=== PATIENT | female | born 1980 | race Caucasian/White ===

== ENCOUNTER → 2018-09-25 15:00 | Oncology outpatient (ONC) | payer BC, SELFPAY ==
[2018-09-04 15:53] VITALS: BP 110/67; PULSE 86; RESP 16; TEMP 37.2; O2SAT 100
--- NOTE | 2018-09-04 16:41 | P.CONONC_ITS ---
History of Present Illness - Data of Consult Consult date: 09/04/18 Primary Care Provider: Xavi Moya MD - Consult Narrative Narrative: Jany Moreno is a 37 year old female who is referred for further evaluation of iron deficiency anemia. The patient reports that she has been anemic for as long as she can remember at least 7 or 8 years. She has been tolerating it fairly well. She does have some dyspnea with exertion but denies any chest pain or pressure. No dizziness or lightheadedness. She feels like her strength and energy level have been normal. She has not had any epistaxis or gingival bleeding. She denies any blood in the urine or stool. She does have menstrual. Lasting about 7 days. She does not believe that they are usually all that unusually heavy. She did take control pills for some time to try and decrease severity were. But had trouble with worsening migraines and stopped. She has never required a blood transfusion. She has taken iron replacement in the past. She had a rash with ferrous sulfate and with ferrous gluconate. She did find that she tolerated vitamins. She has also been taking an iron preparation from a [employer] store that is derived from [employer]. Each tablet contains 28 mg of iron. She has been taking 1 a day. She has not had any rash. She denies any abdominal pain or constipation. In June, her most recent CBC showed a white count of 4.7 hemoglobin 8.5 hematocrit 30.5 with platelets of 699026. Her MCV was 66. Ferritin was 2 iron was 10 with a TIBC of 450 and a sat of 2%. Past medical history is notable for migraine headaches. She has a history of anemia as described above. She has had a prior tonsillectomy. She has had 2 sections. She has a history of ADHD. She has had prior breast augmentation. Her only prescription medication is methylphenidate. She reports allergies to multiple iron preparations and sulfa and fluconazole Family history is positive for sister with anemia. Social history: She is . She works as a school nurse. She does not smoke. She has rare alcohol use. CC: Camden Quesada MD Home Medications and Allergies Home Medications Medication Instructions Recorded Confirmed Type methylphenidate HCl [Concerta] 54 mg PO AMINS #90 tab 10/04/17 09/04/18 Rx Allergies Allergy/AdvReac Type Severity Reaction Status Date / Time ferumoxides [FERUMOXIDES] Allergy Mild HIVES Verified 04/17/18 08:31 iron [IRON] Allergy Mild HIVES Verified 04/17/18 08:31 Sulfa (Sulfonamide Allergy Mild HIVES Verified 04/17/18 08:31 Antibiotics) [SULFA (SULFONAMIDE ANTIBIOTICS)] ferrous sulfate Allergy Unknown HIVES Verified 04/17/18 08:31 [FERROUS SULFATE] fluconazole Allergy Hives Verified 09/04/18 15:32 IRON POLYMALTOSE Allergy Mild HIVES Uncoded 11/29/17 12:56 MINERAL IRON Allergy Mild HIVES Uncoded 11/29/17 12:56 Medical History - Medical, Surgical, Family History Surgical History: Surgical History Status post delivery - Social History Smoking Status: Never smoker Review of Systems - Patient Self-Reported Symptoms SR ears, nose, mouth, throat issues: Congestion SR Cardiovascular issues: Palpitations SR Neuro issues: Headache Constitutional: fair state of general health, able to conduct usual activities, no weight loss Ears, nose, mouth, throat: no lightheadedness Cardiovascular: dyspnea on exertion, no chest pain, no palpitations Hematologic/Lymphatic: anemia Exam - Constitutional positive no acute distress, positive average body habitus - Routine HEENT Exam Head: Present: normocephalic, atraumatic Eye: Present: EOMI, PERRL. Absent: conjunctival icterus, scleral injection ENT: Present: mucous membranes moist, oropharynx clear, dentition normal - Routine Neck Exam Present: supple. Absent: lymphadenopathy, thyromegaly - Routine Respiratory Exam Present: Clear to auscultation bilaterally. Absent: rales, wheezes - Routine Cardiovascular Exam Present: RRR, S1, S2. Absent: murmur - Routine Abdominal Exam Present: soft, normoactive bowel sounds. Absent: tenderness, organomegaly, mass - Routine Extremities Exam Absent: cyanosis, clubbing, edema - Routine Back/Spine Exam Back/Spine: Absent: paraspinal tenderness, vertebral tenderness Comments: There is no clubbing or spooning of the nails. - Routine Skin Exam Present: intact. Absent: petechiae, rash - Routine Neurological Exam Present: alert, oriented X3 - Routine Psychiatric Exam Present: normal affect Results - Imaging Additional studies: Procedures LOW CERVICAL (04/21/10) Assessment and Plan (1) Iron (Fe) deficiency anemia Current visit: Yes Status: Acute A 37-year-old woman with a longstanding history of iron deficiency anemia. She has previously not tolerated iron supplementation but seems to be doing okay on her current preparation. She does have ongoing iron losses with the menstrual blood loss. She is addressing this with Gynecology. In the meantime, I think she would benefit from a higher doses of oral iron. I recommended that she increase the dose of her current supplement to 1 tablet 3 times a day if tolerated. I explained that it would be best absorbed on an empty stomach along with some vitamin-C. If she is absorbing iron adequately, I would expect improvement in reticulocyte count, quality of life and hemoglobin within few weeks. Assuming no further blood losses, hemoglobin should improve by about a half a g per week. She will return to clinic in about 3-4 weeks for follow-up. We will repeat her iron studies, reticulocyte count and CBC at that time. If she is absorbing iron well, she will continue with her oral replacement. If she is not absorbing, we may need to consider IV replacement. I did explain that the biggest risk for this would be allergic reactions. Having had reactions to oral iron would increase her risk for this somewhat although it is difficult to quantify how much.
[2018-09-25 15:18] LABS: Add Manual Diff / Slide Review NO; Basophils Absolute Auto 100 /uL (0-100); Basophils Percent Auto 2.1 % (0-2); Eosinophils Absolute Auto 100 /uL (0-450); Eosinophils Percent Auto 1.9 % (2-4); Hematocrit 34.2 % (36-46); Hemoglobin 10.4 g/dL (12.0-16.0); Lymphocytes Absolute Auto 1600 /uL (1100-4500); Lymphocytes Percent Auto 24.1 % (25-40); Mean Corpuscular HGB Conc 30.4 % (30-36); Mean Corpuscular Hemoglobin 19.3 PG (26-34); Mean Corpuscular Volume 63.3 fL (80-100); Monocytes Absolute Auto 400 /uL (0-900); Monocytes Percent Auto 5.5 % (3-14); Neutrophils Absolute Auto 4300 /uL (1500-7000); Neutrophils Percent Auto 66.4 % (50-75); Platelet Count 218 X10^3/uL (150-400); Red Blood Cell Count 5.39 X10^6/uL (4.0-5.2); Red Cell Distribution Width 25.6 % (11.6-14.8); White Blood Cell Count 6.5 X10^3/uL (4.5-11.0)
[2018-09-25 15:35] LABS: Reticulocyte Count, Percent 1.5 % (1.06-2.63)
[2018-09-25 16:07] LABS: HEMOLYSIS < 15 (0-50); Iron 92 ug/dL (37-170)
[2018-09-25 16:17] LABS: Percent Iron Saturation 21 % (15-50); Total Iron Binding Capacity 430 ug/dL (265-497); Transferrin 344 mg/dL (206-381)
--- NOTE | 2018-09-25 16:26 | PC.NURSE ---
provider visit 10/02, iron panel and profile is stable, ferritin pending, WBC stable
[2018-09-25 16:41] LABS: Ferritin 8.6 ng/mL (6.27-137)
[2018-09-25 16:42] LABS: Anisocytosis 2+; Poikilocytosis 1+; RBC Morphology SN
[2018-09-25 16:43] LABS: Hypochromasia 2+; Microcytosis 1+
== END ==
PROVIDERS: PCP Internal Medicine
DX: D50.9 Iron deficiency anemia, unspecified (principal)
CPT/HCPCS: 36415; 82728; 83540; 83550; 85025; 85045; 99204; 99214

== ENCOUNTER → 2018-11-08 18:38 | Outpatient (CLI) | payer BC, SELFPAY ==
[2018-11-08 20:04] LABS: Influenza A and B by PCR Rapid Negative (Negative)
== END ==
PROVIDERS: PCP Internal Medicine; Visit Provider Physician Assistant
DX: R68.89 Other general symptoms and signs (principal)
CPT/HCPCS: 87400

== ENCOUNTER → 2018-11-16 18:09 | Outpatient (CLI) | payer BC, SELFPAY | PROVIDERS: PCP Internal Medicine; Visit Provider Physician Assistant | DX: R68.89 Other general symptoms and signs (principal) | CPT/HCPCS: 87400 ==

== ENCOUNTER → 2019-01-17 15:42 | Outpatient (CLI) | payer BC, SELFPAY ==
[2019-01-17 16:23] LABS: HEMOLYSIS < 15 (0-50); Iron 21 ug/dL (37-170)
[2019-01-17 16:28] LABS: Add Manual Diff / Slide Review NO; Basophils Absolute Auto 100 /uL (0-100); Basophils Percent Auto 1.1 % (0-2); Eosinophils Absolute Auto 100 /uL (0-450); Eosinophils Percent Auto 1.3 % (2-4); Hematocrit 36.1 % (36-46); Hemoglobin 11.9 g/dL (12.0-16.0); Lymphocytes Absolute Auto 1200 /uL (1100-4500); Mean Corpuscular Hemoglobin 26.4 PG (26-34); Mean Corpuscular Volume 79.9 fL (80-100); Monocytes Absolute Auto 500 /uL (0-900); Neutrophils Absolute Auto 5800 /uL (1500-7000); Neutrophils Percent Auto 75.6 % (50-75); Platelet Count 225 X10^3/uL (150-400); Red Blood Cell Count 4.52 X10^6/uL (4.0-5.2); Red Cell Distribution Width 15.6 % (11.6-14.8); White Blood Cell Count 7.6 X10^3/uL (4.5-11.0)
[2019-01-17 16:33] LABS: Percent Iron Saturation 6 % (15-50); Total Iron Binding Capacity 369 ug/dL (265-497); Transferrin 281 mg/dL (206-381)
[2019-01-17 17:24] LABS: Ferritin 13.4 ng/mL (6.27-137)
== END ==
PROVIDERS: PCP Internal Medicine; Visit Provider Internal Medicine
DX: D50.0 Iron deficiency anemia secondary to blood loss (chronic) (principal)
CPT/HCPCS: 36415; 82728; 83540; 83550; 85025

== ENCOUNTER → 2019-05-09 19:00 | Outpatient (CLI) | payer BC, SELFPAY | PROVIDERS: PCP Internal Medicine; Visit Provider Physician Assistant | DX: N39.0 Urinary tract infection, site not specified (principal) | CPT/HCPCS: 87077; 87086; 87147 ==

== ENCOUNTER → 2019-10-07 13:52 | Outpatient (CLI) | payer OTHER, BC, SELFPAY ==
[2019-10-07 16:15] LABS: Add Manual Diff / Slide Review NO; Basophils Absolute Auto 0 /uL (0-100); Basophils Percent Auto 0.4 % (0-2); Eosinophils Absolute Auto 100 /uL (0-450); Eosinophils Percent Auto 1.8 % (2-4); Hematocrit 38.5 % (36-46); Hemoglobin 12.6 g/dL (12.0-16.0); Lymphocytes Absolute Auto 1400 /uL (1100-4500); Lymphocytes Percent Auto 21.3 % (25-40); Mean Corpuscular HGB Conc 32.8 % (30-36); Mean Corpuscular Hemoglobin 25.9 PG (26-34); Monocytes Absolute Auto 300 /uL (0-900); Monocytes Percent Auto 4.9 % (3-14); Neutrophils Absolute Auto 4600 /uL (1500-7000); Neutrophils Percent Auto 71.6 % (50-75); Platelet Count 227 X10^3/uL (150-400); Red Blood Cell Count 4.87 X10^6/uL (4.0-5.2); Red Cell Distribution Width 14.2 % (11.6-14.8); White Blood Cell Count 6.4 X10^3/uL (4.5-11.0)
[2019-10-07 16:52] LABS: HEMOLYSIS < 15 (0-50); Iron 104 ug/dL (37-170)
[2019-10-07 17:04] LABS: Percent Iron Saturation 25 % (15-50); Total Iron Binding Capacity 412 ug/dL (265-497); Transferrin 330 mg/dL (206-381)
[2019-10-07 19:48] LABS: Ferritin 7 ng/mL (6-137)
== END ==
PROVIDERS: PCP Internal Medicine; Referring Provider Internal Medicine; Visit Provider Internal Medicine
DX: D50.0 Iron deficiency anemia secondary to blood loss (chronic) (principal)
CPT/HCPCS: 36415; 82728; 83540; 83550; 85025

== ENCOUNTER → 2020-04-10 07:55 | Outpatient (CLI) | payer OTHER, BC, SELFPAY ==
--- NOTE | 2020-04-10 07:57 | DI.US.S_ITS ---
PROCEDURE: US EXTREMITY NONVASC LOWER RT INDICATIONS: RIGHT THIGH LUMP TECHNIQUE: Real-time scanning was performed of the right upper thigh, with image documentation. COMPARISON: [facility], US, US PELVIC COMPLETE, 03/30/2020, 12:28. FINDINGS: Scanning is performed at the area of clinical concern involving the right upper thigh. Within this region, there is a subcutaneous mass seen, which is slightly hyperechoic compared to the surrounding subcutaneous fat. No abnormal vascularity can be seen. This mass is ovoid and measures 9 x 6 x 9 mm. IMPRESSION: Likely 9 mm superficial lipoma seen at the area of clinical concern. Dictated by: Luis Antonio Ryan M.D. on 04/10/2020 at 12:20 Approved by: Luis Antonio Ryan M.D. on 04/10/2020 at 12:21
[2020-04-10 09:06] LABS: Add Manual Diff / Slide Review NO; Basophils Absolute Auto 100 /uL (0-100); Basophils Percent Auto 1.1 % (0-2); Eosinophils Absolute Auto 100 /uL (0-450); Eosinophils Percent Auto 2.2 % (2-4); Hematocrit 36.9 % (36-46); Hemoglobin 12.2 g/dL (12.0-16.0); Lymphocytes Absolute Auto 1100 /uL (1100-4500); Lymphocytes Percent Auto 19.9 % (25-40); Mean Corpuscular HGB Conc 33.1 % (30-36); Mean Corpuscular Hemoglobin 26.5 PG (26-34); Mean Corpuscular Volume 80.1 fL (80-100); Monocytes Absolute Auto 300 /uL (0-900); Monocytes Percent Auto 5.6 % (3-14); Neutrophils Absolute Auto 4000 /uL (1500-7000); Neutrophils Percent Auto 71.2 % (50-75); Platelet Count 206 X10^3/uL (150-400); Red Blood Cell Count 4.61 X10^6/uL (4.0-5.2); Red Cell Distribution Width 14.2 % (11.6-14.8); White Blood Cell Count 5.6 X10^3/uL (4.5-11.0)
[2020-04-10 09:09] LABS: HEMOLYSIS < 15 (0-50); Iron 40 ug/dL (37-170)
[2020-04-10 09:17] LABS: Alanine Aminotransferase 19 IU/L (<35); Albumin 4.2 g/dL (3.5-5.0); Albumin Globulin Ratio 1.8 (1.0-2.8); Alkaline Phosphatase 53 U/L (38-126); Aspartate Aminotransferase 24 IU/L (14-36); Bilirubin Total 0.6 mg/dL (0.2-1.3); Blood Urea Nitrogen 15 mg/dL (7-17); Calcium 8.4 mg/dL (8.4-10.2); Carbon Dioxide 26 mmol/L (22-32); Chloride 102 mmol/L (98-107); Cholesterol 148 mg/dL (140-199); Estimated Glomerular Filt Rate > 60.0 mL/min (>60); Globulin 2.3 g/dL (1.7-4.1); Glucose 99 mg/dL (70-100); HDL Cholesterol 57 mg/dL (40-60); HEMOLYSIS < 15 (0-50); LDL Cholesterol Calculated 81 mg/dL (<100); Potassium 4.7 mmol/L (3.4-5.1); Sodium 136 mmol/L (137-145); Total Protein 6.5 g/dL (6.3-8.2); Triglycerides 51 mg/dL (35-150)
[2020-04-10 09:20] LABS: Percent Iron Saturation 10 % (15-50); Total Iron Binding Capacity 387 ug/dL (265-497); Transferrin 286 mg/dL (206-381)
[2020-04-10 09:31] LABS: Free T4, Direct Thyroxine 0.92 ng/dL (0.78-2.19)
[2020-04-10 09:44] LABS: Thyroid Stimulating Hormone 2.72 uIU/mL (0.47-4.68)
== END ==
PROVIDERS: PCP Internal Medicine; Referring Provider Nurse Practitioner; Visit Provider Nurse Practitioner
DX: R22.41 Localized swelling, mass and lump, right lower limb (principal); D50.0 Iron deficiency anemia secondary to blood loss (chronic); N92.0 Excessive and frequent menstruation with regular cycle
CPT/HCPCS: 36415; 76882; 80053; 80061; 83540; 83550; 84439; 84443; 84481; 85025

== ENCOUNTER → 2020-04-21 15:03 | Outpatient (CLI) | payer OTHER, BC, SELFPAY ==
[2020-04-22 08:33] LABS: COVID19 Sendout Not Detected (Not Detect)
== END ==
PROVIDERS: PCP Nurse Practitioner; Visit Provider Nurse Practitioner
DX: Z11.59 Encounter for screening for other viral diseases (principal)
CPT/HCPCS: 87635

== ENCOUNTER 2020-04-24 11:18 | Day surgery (SDC) | payer OTHER, BC, SELFPAY ==
[2020-04-21 12:29] VITALS: BMI 21.8
[2020-04-24] VITALS (8 sets, daily range): BP systolic 97–122; BP diastolic 67–80; PULSE 77–96; RESP 12–18; TEMP 36.4–37.4; O2SAT 98–100; BMI 21.8
--- NOTE | 2020-04-24 | PATH_ITS ---
[facility] Accession Number: [id number] . 01 Material submitted: . endometrium - ENDOMETRIAL CURETTINGS . 01 Clinical history: . SDC . 02 Diagnosis: Endometrum, Curettings: Secretory endometrium with no evidence of neoplasia or hyperplasia. [facility] 04/28/2020 1330 Local . 02 Electronically signed: . Angie Harry MD, Pathologist NPI- [id number] . 01 Gross description: . Received in formalin, labeled with the patient's name, MRN, and endometrial curettings, is a 2.0 x 1.2 x 0.2 cm aggregate of pickett-brown, irregular fragments of tissue admixed with blood-tinged mucus. The specimen is filtered and entirely submitted in cassette A1. ([id number]) /[facility] 04/25/2020 1016 Local . 02 Pathologist provided ICD-10: N92.0 . 02 CPT . 952564 Performed at: 01 [facility] [address], [place], [place] [id number] MD Parag Bailey MD Phone: [phone] Performed at: 02 [facility] [place] [address] [place], [place] [id number] MD Angie Harry MD Phone: [phone]
[2020-04-24] MEDS: LACTATED RINGERS 1,000 ML 42 ML IV (11:40)
--- NOTE | 2020-04-24 11:49 | PM.HP.1 ---
History of Present Illness History of Present Illness Date Patient Seen: 04/24/20 Time Patient Seen: 11:50 Chief complaint: TNC Narrative: Patient is a 39-year-old 2 para 2 who presents for a D and C and NovaSure endometrial ablation secondary to menorrhagia, dysmenorrhea, and anemia. Patient History Medical History (Updated 04/21/20 @ 12:33 by Jeaneth Giron RN) ADHD (Acute) Mass of right thigh (Acute) Patient new to provider (Acute) Preventative health care (Acute) Surgical History Status post delivery Family & Social History Social History: household members spouse,children Tobacco & Substance use: Smoking Status Never smoker Meds Home Medications and Allergies Home Medications Medication Instructions Recorded Confirmed Type [employer]- Iron Supplement 1 tab PO DAILY 03/09/20 04/24/20 History cetirizine 10 mg capsule 10 mg PO DAILY 04/08/20 04/24/20 History methylphenidate HCl [Concerta] 54 mg PO DAILY 04/21/20 04/24/20 History acetaminophen [Tylenol Extra 500 mg PO QID PRN 04/24/20 04/24/20 History Strength] Allergies Allergy/AdvReac Type Severity Reaction Status Date / Time iron [IRON] Allergy Severe HIVES Verified 04/24/20 11:35 Sulfa (Sulfonamide Allergy Severe HIVES Verified 04/24/20 11:35 Antibiotics) [SULFA (SULFONAMIDE ANTIBIOTICS)] ferumoxides [FERUMOXIDES] Allergy Mild HIVES Verified 04/24/20 11:35 fluconazole Allergy Mild Hives Verified 04/24/20 11:35 ferrous sulfate Allergy Unknown HIVES Verified 04/21/20 15:02 [FERROUS SULFATE] IRON POLYMALTOSE Allergy Mild HIVES Uncoded 04/24/20 11:35 MINERAL IRON Allergy Mild HIVES Uncoded 04/24/20 11:35 Exam Vital Signs (past 8 hours): HEENT: No thyromegaly, no anterior cervical or supraclavicular lymphadenopathy. Lungs:Clear to auscultation bilaterally, no wheezes. Cardiovascular: Regular rate and rhythm, no murmurs, rubs, or gallops. Abdomen: Well-healed Pfannenstiel scar. No hepatosplenomegaly. No masses palpable. External genitalia: Normal Vagina: Normal Cervix: Normal Bimanual exam: 7 Week size uterus. Mobile. No adnexal masses or tenderness Rectal: No masses. Assessment & Plan Assessment & Plan narrative: Assessment: 39-year-old 2 para 2 with menorrhagia, dysmenorrhea, and anemia Plan: D and C, NovaSure endometrial ablation The risks, benefits, and alternatives to the procedure were explained to the patient. The risks including bleeding, infection, and uterine perforation. She understands these risks and agrees to proceed. A full par Q was held and consent form was signed. COVID-19 COVID-19 status: Negative Result date/Date tested (Pos, Neg/Pending): 04/21/20 Time Spent With Patient Time with patient: 15-24 minutes
--- NOTE | 2020-04-24 11:55 | PM.PREOP ---
Pre-operative Note COVID-19 COVID-19 status: Negative Result date/Date tested (Pos, Neg/Pending): 04/21/20 Interval Note History & Physical reviewed/Exam performed by Physician: Yes Changes to H&P: No H&P completed within 30 days and has changed as indicated here:: 04/24/20
[2020-04-24] MEDS: SCOPOLAMINE 1 PATCH TOP (11:59)
[2020-04-24] MEDS: ACETAMINOPHEN 325 MG TABLET 975 MG PO (11:59)
--- NOTE | 2020-04-24 11:59 | SUR.OPER ---
Lithotomy on padded OR bed, head on pillow, arms secured on padded arm boards at <90 degrees abduction. Legs secured in padded yellow fins stirrups.
--- NOTE | 2020-04-24 12:43 | SUR.OPER ---
Novasure length 5.5, width 4.5, power 136, 72 seconds
[2020-04-24] MEDS: OXYCODONE IR 5 MG TABLET PO (13:13)
--- NOTE | 2020-04-24 13:15 | PM.GYNOP.1 ---
Operative Date/Time/Diagnoses Date of procedure: 04/24/20 Time of procedure: 13:15 Pre-op diagnosis: Menorrhagia Dysmenorrhea Anemia Post-op diagnosis: same Procedure & Clinicians Procedure: Procedures Operation Date: 04/24/20 13:30 Actual Procedures Side Surgeon uri Diaz endometrial ablation w/ D&C Amina Collins MD Indications: Menorrhagia Dysmenorrhea Anemia Surgeon: Amina Collins Anesthesia Type: General (LMA) Operative Notes Findings: Seven week size retroverted uterus Closure Type: not applicable Specimen(s): endometrial curettings Estimated blood loss (mL): 5 Blood products transfused: none Procedure in detail: After informed consent was obtained, the patient was taken to the operating room where she was placed in the dorsal supine position. After adequate LMA general anesthesia was achieved, she was placed in the dorsal lithotomy position, and prepped and draped in the usual sterile fashion. A time-out was performed. A bivalve speculum was placed into the vagina and the anterior lip of the cervix grasped with a single-tooth tenaculum. The cervical os was sequentially dilated to the # 8 Hegar dilator. Sharp curettage was performed yielding a moderate amount of endometrial curettings. The instrument was removed from the uterus. The uterus was measured from the internal os to the fundus and measured 5.5 cm. The NovaSure catheter was placed into the endometrial cavity and opened. The width measured 4.5 cm. This indicated a power of 136 w. The cervix was capped, the cavity assessment was passed. The cycle was initiated and lasted 72 seconds. The cervix was then capped, the NovaSure catheter was closed and removed from the uterus. The single-tooth tenaculum was removed from the anterior lip of the cervix. The bivalve speculum was removed from the vagina. Sponge, lap, and instrument counts were correct x2. The patient tolerated the procedure well, and was taken to PACU in stable condition. Complications: none Post-operative Condition: stable Disposition: PACU Plan for aftercare: Home after recovery
== END 2020-04-24 13:34 | disposition home or self-care (01) ==
PROVIDERS: PCP Nurse Practitioner; Referring Provider Nurse Practitioner; Visit Provider Obstetrics & Gynecology
PROC: 0U5B8ZZ Destruction of Endometrium, Via Natural or Artificial Opening Endoscopic (ICD-10-PCS; CPT 58563; principal; 2020-04-24 13:30)
DX: N92.0 Excessive and frequent menstruation with regular cycle (principal); N94.6 Dysmenorrhea, unspecified; J45.909 Unspecified asthma, uncomplicated; D64.9 Anemia, unspecified
CPT/HCPCS: 58353; J1100; J1885; J2250; J2405; J2704

== ENCOUNTER → 2021-02-15 08:15 | Outpatient (CLI) | payer BC, SELFPAY ==
[2021-02-15 09:43] LABS: Add Manual Diff / Slide Review NO; Basophils Absolute Auto 100 /uL (0-100); Basophils Percent Auto 1.3 % (0-2); Eosinophils Absolute Auto 200 /uL (0-450); Eosinophils Percent Auto 2.9 % (2-4); Hematocrit 36.5 % (36-46); Hemoglobin 12.1 g/dL (12.0-16.0); Lymphocytes Absolute Auto 1200 /uL (1100-4500); Lymphocytes Percent Auto 23.1 % (25-40); Mean Corpuscular HGB Conc 33.3 % (30-36); Mean Corpuscular Volume 81.3 fL (80-100); Monocytes Absolute Auto 400 /uL (0-900); Monocytes Percent Auto 6.9 % (3-14); Neutrophils Absolute Auto 3400 /uL (1500-7000); Neutrophils Percent Auto 65.8 % (50-75); Platelet Count 158 X10^3/uL (150-400); Red Blood Cell Count 4.48 X10^6/uL (4.0-5.2); Red Cell Distribution Width 13.8 % (11.6-14.8); White Blood Cell Count 5.1 X10^3/uL (4.5-11.0)
[2021-02-15 10:03] LABS: Alanine Aminotransferase 17 IU/L (<35); Albumin 3.8 g/dL (3.5-5.0); Albumin Globulin Ratio 1.6 (1.0-2.8); Alkaline Phosphatase 47 U/L (38-126); Aspartate Aminotransferase 23 IU/L (14-36); BUN Creatinine Ratio 21.4 (6-22); Bilirubin Total 0.4 mg/dL (0.2-1.3); Blood Urea Nitrogen 15 mg/dL (7-17); Calcium 7.8 mg/dL (8.4-10.2); Carbon Dioxide 25 mmol/L (22-32); Chloride 105 mmol/L (98-107); Cholesterol 124 mg/dL (140-199); Estimated Glomerular Filt Rate > 60.0 mL/min (>60); Globulin 2.4 g/dL (1.7-4.1); Glucose 91 mg/dL (70-100); HDL Cholesterol 49 mg/dL (40-60); HEMOLYSIS < 15 (0-50); LDL Cholesterol Calculated 65 mg/dL (<100); Potassium 3.7 mmol/L (3.4-5.1); Sodium 137 mmol/L (137-145); Total Protein 6.2 g/dL (6.3-8.2); Triglycerides 52 mg/dL (35-150)
[2021-02-15 10:47] LABS: Free T3, Triiodothyronine Free 3.14 pg/mL (2.77-5.27); Free T4, Direct Thyroxine 0.86 ng/dL (0.78-2.19)
[2021-02-15 11:00] LABS: Thyroid Stimulating Hormone 3.52 uIU/mL (0.47-4.68)
== END ==
PROVIDERS: PCP Nurse Practitioner; Referring Provider Nurse Practitioner; Visit Provider Nurse Practitioner
DX: Z00.00 Encounter for general adult medical examination without abnormal findings (principal); D50.0 Iron deficiency anemia secondary to blood loss (chronic)
CPT/HCPCS: 36415; 80053; 80061; 84439; 84443; 84481; 85025

== ENCOUNTER → 2021-04-29 13:34 | Outpatient (CLI) | payer BC, SELFPAY ==
[2021-04-29 14:02] LABS: COVID19 -Nasal RAPID Negative (Negative)
== END ==
PROVIDERS: PCP Nurse Practitioner; Visit Provider Nurse Practitioner
DX: R09.81 Nasal congestion (principal); R53.83 Other fatigue; Z20.822 Contact with and (suspected) exposure to COVID-19
CPT/HCPCS: 87635

== ENCOUNTER → 2021-08-24 17:56 | Outpatient (CLI) | payer BC, SELFPAY ==
[2021-08-24 18:57] LABS: COVID19 -Nasal RAPID Negative (Negative)
== END ==
PROVIDERS: PCP Nurse Practitioner; Referring Provider Nurse Practitioner Family; Visit Provider Nurse Practitioner Family
DX: Z20.822 Contact with and (suspected) exposure to COVID-19 (principal)
CPT/HCPCS: 87635

== ENCOUNTER → 2021-09-02 13:11 | Outpatient (CLI) | payer BC, SELFPAY ==
[2021-09-02 14:44] LABS: COVID19 -Nasal RAPID POSITIVE (Negative)
== END ==
PROVIDERS: PCP Nurse Practitioner; Referring Provider Nurse Practitioner Family; Visit Provider Nurse Practitioner Family
DX: U07.1 COVID-19 (principal); Z20.822 Contact with and (suspected) exposure to COVID-19
CPT/HCPCS: 87635

== ENCOUNTER → 2021-12-11 08:00 | Outpatient (CLI) | payer BC, SELFPAY ==
[2021-12-11 08:52] LABS: Influenza A - CEPHEID Flu A NEGATIVE (NEGATIVE); Influenza B - CEPHEID Flu B NEGATIVE (NEGATIVE)
[2021-12-11 09:15] LABS: COVID-19 CEPHEID PCR (VTM/NP) POSITIVE (Negative)
== END ==
PROVIDERS: PCP Nurse Practitioner; Visit Provider Nurse Practitioner Family
DX: U07.1 COVID-19 (principal); R05.9 Cough, unspecified; Z20.822 Contact with and (suspected) exposure to COVID-19
CPT/HCPCS: 0240U

== ENCOUNTER → 2022-10-01 08:28 | Outpatient (CLI) | payer BC, SELFPAY ==
[2022-10-01 11:16] LABS: Add Manual Diff / Slide Review NO; Alanine Aminotransferase 20 IU/L (<35); Albumin Globulin Ratio 1.9 (1.0-2.8); Alkaline Phosphatase 49 U/L (38-126); Aspartate Aminotransferase 21 IU/L (14-36); BUN Creatinine Ratio 14.1 (6-22); Basophils Absolute Auto 100 /uL (0-100); Basophils Percent Auto 1.4 % (0-2); Bilirubin Total 0.5 mg/dL (0.2-1.3); Blood Urea Nitrogen 12 mg/dL (7-17); Calcium 7.7 mg/dL (8.4-10.2); Carbon Dioxide 28 mmol/L (22-32); Chloride 103 mmol/L (98-107); Cholesterol 143 mg/dL (140-199); Eosinophils Absolute Auto 100 /uL (0-450); Eosinophils Percent Auto 2.7 % (2-4); Estimated Glomerular Filt Rate > 60 mL/min (>60); Globulin 2.1 g/dL (1.7-4.1); Glucose 96 mg/dL (70-100); HDL Cholesterol 50 mg/dL (40-60); HEMOLYSIS < 15 (0-50); LDL Cholesterol Calculated 83 mg/dL (<100); Lymphocytes Absolute Auto 800 /uL (1100-4500); Lymphocytes Percent Auto 17.9 % (25-40); Mean Corpuscular HGB Conc 33.3 % (30-36); Mean Corpuscular Hemoglobin 27.6 PG (26-34); Monocytes Absolute Auto 300 /uL (0-900); Monocytes Percent Auto 7.1 % (3-14); Neutrophils Absolute Auto 3300 /uL (1500-7000); Neutrophils Percent Auto 70.9 % (50-75); Platelet Count 164 X10^3/uL (150-400); Potassium 4.4 mmol/L (3.4-5.1); Red Cell Distribution Width 13.7 % (11.6-14.8); Sodium 137 mmol/L (137-145); Total Protein 6.1 g/dL (6.3-8.2); Triglycerides 52 mg/dL (35-150); White Blood Cell Count 4.7 X10^3/uL (4.5-11.0)
[2022-10-01 11:50] LABS: Free T3, Triiodothyronine Free 3.78 pg/mL (2.77-5.27); Free T4, Direct Thyroxine 1.16 ng/dL (0.78-2.19)
[2022-10-01 12:03] LABS: Thyroid Stimulating Hormone 2.16 uIU/mL (0.47-4.68)
== END ==
PROVIDERS: PCP Nurse Practitioner; Referring Provider Nurse Practitioner; Visit Provider Nurse Practitioner
DX: Z00.00 Encounter for general adult medical examination without abnormal findings (principal)
CPT/HCPCS: 36415; 80053; 80061; 84439; 84443; 84481; 85025

== ENCOUNTER → 2022-11-13 13:31 | Outpatient (CLI) | payer BC, SELFPAY ==
[2022-11-13 14:46] LABS: Influenza A - CEPHEID Flu A NEGATIVE (NEGATIVE); Influenza B - CEPHEID Flu B NEGATIVE (NEGATIVE); Respiratory Syncytial Virus Negative (Negative)
[2022-11-13 14:52] LABS: COVID-19 CEPHEID 4-PLEX PCR Negative (Negative)
== END ==
PROVIDERS: PCP Nurse Practitioner; Visit Provider Nurse Practitioner Family
DX: R05.1 Acute cough (principal); Z20.822 Contact with and (suspected) exposure to COVID-19
CPT/HCPCS: 0241U

== ENCOUNTER → 2023-03-06 10:54 | Outpatient (CLI) | payer BC, SELFPAY | PROVIDERS: PCP Nurse Practitioner; Visit Provider Student in an Organized Health Care Education/Training Program | DX: J02.9 Acute pharyngitis, unspecified (principal) | CPT/HCPCS: 87070 ==

== ENCOUNTER → 2023-09-30 10:48 | Outpatient (CLI) | payer BC, SELFPAY ==
--- NOTE | 2023-09-30 10:50 | DI.MG.S_ITS ---
BILATERAL DIGITAL SCREENING MAMMOGRAM 3D/2D WITH CAD WITH AUGMENTATION: 09/30/2023 CLINICAL: Routine screening. Baseline exam. No prior exams were available for comparison. Both breasts are heterogeneously dense, which may obscure small masses (category c / 51-75% glandular tissue). Current study was also evaluated with a Computer Aided Detection (CAD) system. Bilateral breast implants are present. No significant masses, calcifications, or other findings are seen in either breast. IMPRESSION: NEGATIVE There is no mammographic evidence of malignancy. A 1 year screening mammogram is recommended. Based on the Tyrer Cuzick model (a risk assessment model) the patient's lifetime risk is 13.1% and her 10 year risk is 1.6%. According to the ACR, ACS, and NCCN guidelines, an annual breast MRI exam along with mammogram is recommended if the patient's lifetime risk is 20% or greater. This exam was interpreted at Station ID: [id number]. NOTE: For mammograms, a report in lay terms will be sent to the patient. Approximately 15% of breast malignancies will not be visualized mammographically. In the management of a palpable breast mass, a negative mammogram must not discourage biopsy of a clinically suspicious lesion. Electronically Signed By: Kulwinder watkins/john:10/02/2023 08:20:39 letter sent: Normal Exam ACR BI-RADS Category 1: Negative [id number]
== END ==
LOC: MAMMO 10:49
PROVIDERS: PCP Nurse Practitioner; Referring Provider Nurse Practitioner; Visit Provider Nurse Practitioner
DX: Z12.31 Encounter for screening mammogram for malignant neoplasm of breast (principal); R92.333 Mammographic heterogeneous density, bilateral breasts
CPT/HCPCS: 77063; 77067

== ENCOUNTER → 2023-12-30 12:14 | Outpatient (CLI) | payer BC, SELFPAY | PROVIDERS: PCP Nurse Practitioner; Visit Provider Nurse Practitioner Family | DX: J02.9 Acute pharyngitis, unspecified (principal) | CPT/HCPCS: 87070 ==

== ENCOUNTER → 2024-04-02 07:10 | Outpatient (CLI) | payer BC, SELFPAY ==
--- NOTE | 2024-04-02 | DI.CT.S_ITS ---
PROCEDURE: CT SINUS SCREEN WO CON INDICATIONS: CHRONIC PANISINUSITIS, RECURRENT TECHNIQUE: Noncontrast 3.0 mm axial images acquired from the frontal sinuses to the mid-sella, with coronal and sagittal reformats. For radiation dose reduction, the following was used: automated exposure control, adjustment of mA and/or kV according to patient size. COMPARISON: None. FINDINGS: Image quality: Excellent. Maxillary Sinuses: Trace mucosal thickening within both maxillary sinus. Ethmoid Air Cells: No bony remodeling or destruction. Sinuses are clear. Sphenoid Sinuses: Thick mucosal thickening within the left sphenoid sinus. The right sphenoid sinus is clear. There is occlusion of the left sphenoid ethmoid recess. The right sphenoethmoid recess is patent. Frontal Sinuses: The frontal recess are patent bilaterally. Sinuses are clear. Ostiomeatal Complexes: Ostiomeatal complexes are patent. No Waqas cells. Miscellaneous: Visualized intra-orbital contents are normal. No davy bullosa or paradoxical turbinate curvature. No nasal septal deviation. Left-sided nose ring IMPRESSION: 1. There is thick mucosal thickening within the left sphenoid sinus and occlusion of the left sphenoethmoid recess. The remaining outflow tracks are patent. 2. Trace mucosal thickening within both maxillary sinus. Dictated by: Barron Leong M.D. on 04/02/2024 at 13:57 Approved by: Barron Leong M.D. on 04/02/2024 at 14:12
[2024-04-02 09:15] LABS: Hematocrit 39.6 % (36-46); Hemoglobin 13.5 g/dL (12.0-16.0); Mean Corpuscular HGB Conc 34.2 % (30-36); Mean Corpuscular Hemoglobin 30.3 PG (26-34); Mean Corpuscular Volume 88.6 fL (80-100); Platelet Count 179 X10^3/uL (150-400); Red Blood Cell Count 4.46 X10^6/uL (4.0-5.2); Red Cell Distribution Width 13.6 % (11.6-14.8); White Blood Cell Count 6.6 X10^3/uL (4.5-11.0)
[2024-04-02 09:45] LABS: Alanine Aminotransferase 15 IU/L (<35); Albumin 4.2 g/dL (3.5-5.0); Albumin Globulin Ratio 2.1 (1.0-2.8); Alkaline Phosphatase 49 U/L (38-126); Aspartate Aminotransferase 23 IU/L (14-36); BUN Creatinine Ratio 13.3 (6-22); Bilirubin Total 0.7 mg/dL (0.2-1.3); Blood Urea Nitrogen 10 mg/dL (7-17); Calcium 8.4 mg/dL (8.4-10.2); Carbon Dioxide 28 mmol/L (22-32); Chloride 101 mmol/L (98-107); Cholesterol 159 mg/dL (140-199); Estimated Glomerular Filt Rate > 60 mL/min (>60); Glucose 93 mg/dL (70-100); HDL Cholesterol 52 mg/dL (40-60); HEMOLYSIS < 15 (0-50); LDL Cholesterol Calculated 92 mg/dL (<100); Potassium 4.4 mmol/L (3.4-5.1); Sodium 136 mmol/L (137-145); Total Protein 6.2 g/dL (6.3-8.2); Triglycerides 73 mg/dL (35-150)
[2024-04-02 09:58] LABS: Creatinine Urine Random 81.62 mg/dL
[2024-04-02 09:59] LABS: Free T3, Triiodothyronine Free 3.99 pg/mL (2.77-5.27)
[2024-04-02 10:11] LABS: Microalbumin Urine Random < 0.6 mg/dL (0-1.6)
[2024-04-02 10:12] LABS: Thyroid Stimulating Hormone 3.03 uIU/mL (0.47-4.68)
[2024-04-02 10:39] LABS: HIV 1 & 2 Ab/Ag 4th Gen Combo NEGATIVE (NEGATIVE)
== END ==
LOC: CT 07:11
PROVIDERS: PCP Nurse Practitioner; Referring Provider Otolaryngology; Visit Provider Otolaryngology
DX: Z00.00 Encounter for general adult medical examination without abnormal findings (principal); Z11.4 Encounter for screening for human immunodeficiency virus [HIV]; J32.4 Chronic pansinusitis; J01.41 Acute recurrent pansinusitis
CPT/HCPCS: 36415; 70486; 80053; 80061; 82043; 82570; 84439; 84443; 84481; 85027; 87389

== ENCOUNTER → 2024-08-23 08:45 | Outpatient (CLI) | payer BC, SELFPAY ==
--- NOTE | 2024-08-23 08:47 | DI.CT.S_ITS ---
PROCEDURE: CT SINUS SCREEN WO CON INDICATIONS: SPHENOID SINUSITIS TECHNIQUE: Noncontrast 3.0 mm axial images acquired from the frontal sinuses to the mid-sella, with coronal and sagittal reformats. For radiation dose reduction, the following was used: automated exposure control, adjustment of mA and/or kV according to patient size. COMPARISON: [facility], CT, CT SINUS SCREEN WO CON, 04/02/2024, 8:02. FINDINGS: Image quality: Excellent. Maxillary Sinuses: No bony remodeling or destruction. Moderate mucosal thickening of the left greater than right maxillary sinuses. Small air-fluid levels.. Ethmoid Air Cells: No bony remodeling or destruction. Mild mucosal thickening. Sphenoid Sinuses: No bony remodeling or destruction. Mild mucosal thickening, left greater than right. Frontal Sinuses: No bony remodeling or destruction. Sinuses are clear. Ostiomeatal Complexes: Ostiomeatal complexes are completely opacified on the left and partially opacified on the right. No Waqas cells. Miscellaneous: Visualized intra-orbital contents are normal. No davy bullosa or paradoxical turbinate curvature. No nasal septal deviation. IMPRESSION: Sinusitis as described above, worse in the left maxillary sinus. Small air-fluid levels, suggestive of acute sinusitis. Dictated by: Nathan Blanco M.D. on 08/23/2024 at 11:34 Approved by: Nathan Blanco M.D. on 08/23/2024 at 11:36
== END ==
PROVIDERS: PCP Nurse Practitioner; Referring Provider Otolaryngology; Visit Provider Otolaryngology
DX: J01.41 Acute recurrent pansinusitis (principal); J32.3 Chronic sphenoidal sinusitis
CPT/HCPCS: 70486